=== PATIENT | male | born 2000 | race Caucasian/White ===

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

== ENCOUNTER 2019-01-27 14:48 | Emergency (ER) | payer OTHER ==
[~2019-01-27] VITALS: Ht 172.7 cm; Wt 63.0 kg
[2019-01-27] MEDS ORDERED: SODIUM CHLORIDE FLUSH 10ML SYR IVF ONE (15:30)
--- NOTE | 2019-01-27 15:30 | NUR ---
PT C/O PERSISTENT INTERMITTENT SYMPTOMS OVER THE LAST TWO WEEKS PROGRESSIVELY GETTING WORSE THAT INCLUDE N/V/D, ABD PAIN WITH NEW BLOOD IN STOOL THAT STARTED TODAY. PT SEEN BY DR. BERGERON. PT TO HAVE CT AND LABS.
[2019-01-27 15:39] LABS: MICROSCOPIC INDICATED
[2019-01-27 15:48] LABS: CULTURE INDICATED? NO
[2019-01-27 15:56] LABS: MEAN CORPUSCULAR HEMOGLOBIN 28.8 pg (27.5-34.5); MEAN CORPUSCULAR HGB CONC 33.3 g/dL (33.2-36.2); MEAN CORPUSCULAR VOLUME 86.3 fL (81-97); MEAN PLATELET VOLUME 8.9 fL (7.4-10.4); PLATELET COUNT 205 x10^3/uL (130-400); RED BLOOD COUNT 5.44 x10^6/uL (4.38-5.82); RED CELL DISTRIBUTION WIDTH 13.2 % (9.4-14.8)
[2019-01-27 16:06] LABS: ALBUMIN 4.1 g/dL (3.4-5.0); CALCIUM 8.6 mg/dL (8.5-10.1)
[2019-01-27 16:09] LABS: ALANINE AMINOTRANSFERASE 206 U/L (12-78); ALKALINE PHOSPHATASE 110 U/L (45-117); BILIRUBIN,TOTAL 0.7 mg/dL (0.2-1.0); CREATININE 1.15 mg/dL (0.7-1.3); TOTAL PROTEIN 8.2 g/dL (6.4-8.2)
[2019-01-27 16:34] LABS: MD YES
[2019-01-27 16:42] LABS: BANDS%(MANUAL) 4 % (0-7); BASOS#(MANUAL) 0.15 x10^3/uL (0-0.3); BASOS% (MANUAL) 1 % (0-1); EOS#(MANUAL) 0.15 x10^3/uL (0.0-0.8); EOS% (MANUAL) 1 % (1-7); LYMPH#(MANUAL) 1.94 x10^3/uL (1-6.1); LYMPHS% (MANUAL) 13 % (22-44); MONOS#(MANUAL) 0.75 x10^3/uL (0.3-2.7); MONOS% (MANUAL) 5 % (2-9); REACTIVE LYMPHS # (MANUAL) 9.24 x10^3/uL (0-0); REACTIVE LYMPHS % (MANUAL) 62 % (0-0); SEG#(MANUAL) 2.09 x10^3/uL (1.8-8); SEGS% (MANUAL) 14 % (42-75)
[2019-01-27 16:43] LABS: <PLATELET ESTIMATE> ADEQUATE; <PLT MORPHOLOGY> NORMAL PLT MORPH; <RBC MORPHOLOGY> NORMAL; ANION GAP 7 mmol/L (5-15); CHLORIDE 103 mmol/L (98-107)
[2019-01-27] MEDS ORDERED: OMNIPAQUE 350 MG/ML, 100ML BOTTLE ONE (16:47)
[2019-01-27 17:27] VITALS: BP 110/66
== END 2019-01-27 17:35 | disposition home or self-care (01) ==
LOC: ED 17:04
DX: B27.00 Gammaherpesviral mononucleosis without complication (principal); L05.91 Pilonidal cyst without abscess; J02.9 Acute pharyngitis, unspecified
CPT/HCPCS: 36415; 74177; 80053; 81001; 83690; 85025; 86308; 99284; Q9967